=== PATIENT | female | born 1970 | race Caucasian/White ===

== ENCOUNTER 2019-02-08 23:24 | Emergency (ER) | payer BC ==
[~2019-02-08] VITALS: Ht 172.7 cm; Wt 63.5 kg
[~2019-02-08 23:24] MED LIST: ALPR0.25 PO; DEXILANT PO; OMEP20CA11 PO; PROC10TA13 PO; SUCR1TAB PO
[2019-02-08 23:29] VITALS: BP_SYST 94
--- NOTE | 2019-02-08 23:30 | NUR ---
Patient triaged and placed in waiting room. VSS and patient appears in no acute distress at this time. Accompanied by FAM MEMBER, awaiting available bed, and MD notified of need for MSE.
--- NOTE | 2019-02-09 00:19 | NUR ---
Patient to ER bed 5 for evaluation. Side rails up.
--- NOTE | 2019-02-09 00:20 | NUR ---
Pt BIB C/O Lt Knee pain S/P mechanical fall. Pt states pain intensifies when bearing weight or changing positions. Pt denies KO, N/V or any other symptoms at this time. Will continue to monitor.
--- NOTE | 2019-02-09 00:30 | NUR ---
ER Dr. Gross at bedside examining patient.
[2019-02-09] MEDS ORDERED: MORPHINE SULFATE 10 MG/ML VIAL IM ONE (01:15)
[2019-02-09] MEDS ORDERED: DIPHENHYDRAMINE INJ 50 MG/ML VIAL IM ONE (01:15)
--- NOTE | 2019-02-09 01:20 | NUR ---
Pt is resting in bed, no acute distress noted at this time.
[2019-02-09 02:10] VITALS: BP_SYST 94
--- NOTE | 2019-02-09 02:10 | NUR ---
Patient given written and verbal discharge instructions and verbalizes understanding. ER MD discussed with patient the results and treatment provided. Patient in stable condition. ID arm band removed. Rx of NOrco given. Patient educated on pain management and to follow up with PMD. Pain Scale 0. Opportunity for questions provided and answered. Medication side effect fact sheet provided.
== END 2019-02-09 02:10 | disposition home or self-care (01) ==
LOC: SED 23:24
DX: S82.002A Unspecified fracture of left patella, initial encounter for closed fracture (principal); S80.02XA Contusion of left knee, initial encounter; S60.417A Abrasion of left little finger, initial encounter; F41.9 Anxiety disorder, unspecified; W01.0XXA Fall on same level from slipping, tripping and stumbling without subsequent striking against object, initial encounter; Y93.89 Activity, other specified; Y92.89 Other specified places as the place of occurrence of the external cause; Y99.8 Other external cause status
CPT/HCPCS: 29505; 73564; 96372; 99283; J1200; J2270

== ENCOUNTER 2019-02-13 09:52 | Day surgery (SDC) | payer BC ==
[2019-02-10 11:39] LABS: BASOPHILS # (AUTO) 0.1 K/uL (0.0-0.2); BASOPHILS % (AUTO) 0.4 % (0.0-2.0); EOSINOPHILS # (AUTO) 0.1 K/uL (0.0-0.4); EOSINOPHILS % (AUTO) 0.6 % (0.0-4.0); HEMATOCRIT 36.9 % (36-48); HEMOGLOBIN 12.3 g/dL (12.0-16.0); LYMPHOCYTES # (AUTO) 2.8 K/uL (1.0-5.5); LYMPHOCYTES % (AUTO) 20.1 % (20.5-51.5); MEAN CORPUSCULAR HEMOGLOBIN 31 pg (27-31); MEAN CORPUSCULAR HGB CONC 33 % (32-36); MEAN CORPUSCULAR VOLUME 92 fL (79.0-98.0); MONOCYTES # (AUTO) 0.5 K/uL (0.0-1.0); MONOCYTES % (AUTO) 3.8 % (1.7-9.3); NEUTROPHILS # (AUTO) 10.4 K/uL (1.8-7.7); NEUTROPHILS % (AUTO) 75.1 % (40.0-70.0); PLATELET COUNT (AUTO) 347 K/uL (130-430); RED BLOOD CELL COUNT(AUTO) 4.03 MIL/uL (4.2-6.2); RED CELL DISTRIBUTION WIDTH 16.1 % (9.0-15.0); WHITE BLOOD COUNT (AUTO) 13.8 K/uL (4.8-10.8)
[2019-02-10 11:52] LABS: CALCIUM 9.1 mg/dL (8.4-11.0); CREATININE 0.69 mg/dL (0.55-1.30); POTASSIUM 4.1 mmol/L (3.5-5.1)
[2019-02-10 11:55] LABS: INR 1.1 (0.8-1.2); PROTHROMBIN TIME 10.6 SECS (9.5-12.5)
[2019-02-10 12:08] LABS: BILIRUBIN,URINE 1+ (NEGATIVE); BLOOD, URINE NEGATIVE (NEGATIVE); CLARITY/URINE SL HAZY (CLEAR); COLOR,URINE YELLOW (YELLOW); GLUCOSE,URINE NEGATIVE (NEGATIVE); KETONES,URINE TRACE (NEGATIVE); LEUKOCYTE ESTERASE ,URINE TRACE (NEGATIVE); NITRITE, URINE NEGATIVE (NEGATIVE); PH,URINE 5.5 (5.0-8.0); PROTEIN URINE NEGATIVE (NEGATIVE)
[2019-02-10 12:13] LABS: BACTERIA,URINE FEW /HPF (None Seen); RBC,URINE 0-3 /HPF (0-3)
[~2019-02-13] VITALS: Ht 172.7 cm; Wt 63.5 kg
[~2019-02-13 09:52] MED LIST changes: +OMEP20CA10 PO; -OMEP20CA11 PO
[2019-02-13] MEDS ORDERED: LevALBUTEROL HCL 1.25 MG/0.5 ML *CONC.* VIAL.NEB (XOPENEX CONC.) INH ONE ×2 (11:00→11:13)
[2019-02-13] MEDS ORDERED: POLYMYXIN 500,000/BACIT.10,000 UNITS in NS IRR 1 L IR ONE (11:41)
[2019-02-13] MEDS ORDERED: LR 1,000 ML IV SCH (12:12)
[2019-02-13] MEDS ORDERED: HYDROmorphone 2 MG/ML VIAL IVP PRN ×2 (12:15)
[2019-02-13] MEDS ORDERED: HYDROmorphone 1 MG INJ. 1 MG/ML AMPUL IVP PRN (12:15)
[2019-02-13] MEDS ORDERED: MEPERIDINE HCL/PF 25 MG/ML DISP.SYRIN IVP PRN (12:15)
[2019-02-13] MEDS ORDERED: fentaNYL CITRATE 250 MCG/5 ML AMP ONE (13:05)
[2019-02-13] MEDS ORDERED: LR 1,000 ML IV.SOLN IV ONE (13:05)
[2019-02-13] MEDS ORDERED: KETOROLAC TROMETHAMINE 30 MG VIAL ONE (13:05)
[2019-02-13] MEDS ORDERED: PROPOFOL 200MG/ 20ML VIAL (DIPRIVAN) IV ONE (13:05)
[2019-02-13] MEDS ORDERED: DEXAMETHASONE SOD PHOSPHATE 4 MG/ML VIAL ONE (13:05)
[2019-02-13] MEDS ORDERED: MIDAZOLAM HCL 5 MG/ML VIAL (VERSED) IV ONE (13:05)
[2019-02-13] MEDS ORDERED: ONDANSETRON HCL 4 MG/2 ML VIAL ONE (13:05)
[2019-02-13] MEDS ORDERED: ROCURONIUM BROMIDE 10 MG/ML (ZEMURON) ONE (13:05)
[2019-02-13] MEDS ORDERED: SEVOFLURANE 15 MIN GAS INH ONE (13:05)
[2019-02-13] MEDS ORDERED: HYDROmorphone 2 MG/ML VIAL ONE (13:32)
[2019-02-13] MEDS ORDERED: MEPERIDINE HCL/PF 25 MG/ML DISP.SYRIN ONE (13:49)
[2019-02-13 15:26] VITALS: BP_SYST 99
== END 2019-02-13 15:05 | disposition home or self-care (01) ==
LOC: SMU 09:52 → SDS 09:52
PROVIDERS: ATTEND Orthopaedic Surgery
DX: S82.042A Displaced comminuted fracture of left patella, initial encounter for closed fracture (principal); F17.210 Nicotine dependence, cigarettes, uncomplicated; F41.9 Anxiety disorder, unspecified; K21.9 Gastro-esophageal reflux disease without esophagitis; Z79.01 Long term (current) use of anticoagulants; W19.XXXA Unspecified fall, initial encounter; Y93.89 Activity, other specified; Y92.89 Other specified places as the place of occurrence of the external cause; Y99.8 Other external cause status
CPT/HCPCS: 27524; 36415; 73560; 80048; 81000; 84703; 85025; 85610; 85730; 94640; C1713; J1100; J1170; J1885; J2175; J2250; J2405; J2704; J3010; J7120; J7612

== ENCOUNTER 2021-03-23 16:26 | Emergency (ER) | payer BC ==
[~2021-03-23] VITALS: Ht 172.7 cm; Wt 68.0 kg
[~2021-03-23 16:26] MED LIST changes: -OMEP20CA10 PO; +OMEP20CA15 PO
[2021-03-23 16:44] VITALS: BP_SYST 105
[2021-03-23] MEDS ORDERED: KETOROLAC TROMETHAMINE 60 MG/2 ML VIAL IM ONE (16:45)
[2021-03-23] MEDS ORDERED: HYDR-3917 PO ×2 (17:57→18:28)
[2021-03-23] MEDS ORDERED: IBUP-1969 PO ×2 (17:57→18:28)
[2021-03-23] MEDS ORDERED: MORPHINE 4 MG INJ. 4 MG/ML VIAL IM ONE (18:00)
[2021-03-23 18:34] VITALS: BP_SYST 113
== END 2021-03-23 18:34 | disposition home or self-care (01) ==
LOC: SED 16:26
DX: S93.401A Sprain of unspecified ligament of right ankle, initial encounter (principal); K21.9 Gastro-esophageal reflux disease without esophagitis; Z79.899 Other long term (current) drug therapy; V49.49XA Driver injured in collision with other motor vehicles in traffic accident, initial encounter; Y93.89 Activity, other specified; Y92.89 Other specified places as the place of occurrence of the external cause; Y99.8 Other external cause status
CPT/HCPCS: 73610; 96372; 99284; J1885; J2270

== ENCOUNTER 2021-07-18 09:53 | Day surgery (SDC) | payer BC, SELFPAY ==
[2021-07-16 13:55] LABS: BASOPHILS # (AUTO) 0.1 K/uL (0.0-0.2); BASOPHILS % (AUTO) 0.6 % (0.0-2.0); EOSINOPHILS # (AUTO) 0.2 K/uL (0.0-0.4); EOSINOPHILS % (AUTO) 1.5 % (0.0-4.0); HEMATOCRIT 37.3 % (36-48); HEMOGLOBIN 12.3 g/dL (12.0-16.0); LYMPHOCYTES # (AUTO) 4.1 K/uL (1.0-5.5); LYMPHOCYTES % (AUTO) 37.1 % (20.5-51.5); MEAN CORPUSCULAR HEMOGLOBIN 27 pg (27-31); MEAN CORPUSCULAR HGB CONC 33 % (32-36); MEAN CORPUSCULAR VOLUME 80 fL (79.0-98.0); MONOCYTES # (AUTO) 0.3 K/uL (0.0-1.0); MONOCYTES % (AUTO) 3.1 % (1.7-9.3); NEUTROPHILS # (AUTO) 6.3 K/uL (1.8-7.7); NEUTROPHILS % (AUTO) 57.7 % (40.0-70.0); PLATELET COUNT (AUTO) 524 K/uL (130-430); RED BLOOD CELL COUNT(AUTO) 4.66 MIL/uL (4.2-6.2)
[2021-07-16 14:23] LABS: BILIRUBIN,URINE NEGATIVE (NEGATIVE); BLOOD, URINE NEGATIVE (NEGATIVE); CLARITY/URINE CLEAR (CLEAR); COLOR,URINE YELLOW (YELLOW); GLUCOSE,URINE NEGATIVE (NEGATIVE); KETONES,URINE NEGATIVE (NEGATIVE); LEUKOCYTE ESTERASE ,URINE NEGATIVE (NEGATIVE); NITRITE, URINE NEGATIVE (NEGATIVE); PROTEIN URINE NEGATIVE (NEGATIVE); UROBILINOGEN,URINE 0.2 (0.2-1.0)
[2021-07-16 14:30] LABS: CALCIUM 9.5 mg/dL (8.4-11.0); CREATININE 0.66 mg/dL (0.55-1.30); POTASSIUM 4.1 mmol/L (3.5-5.1)
[2021-07-16 14:48] LABS: INR 0.9 (0.8-1.2); PROTHROMBIN TIME 9.9 SECS (9.5-12.5)
[~2021-07-18] VITALS: Ht 172.7 cm; Wt 68.0 kg
[~2021-07-18 09:53] MED LIST changes: +HYDR-3917 PO; +IBUP-1969 PO
[2021-07-18 10:45] LABS: HCG,QUAL RESULT NEGATIVE (NEGATIVE)
[2021-07-18] MEDS ORDERED: KETOROLAC TROMETHAMINE 30 MG VIAL ONE ×2 (12:05→13:58)
[2021-07-18] MEDS ORDERED: SEVOFLURANE 15 MIN GAS INH ONE (12:05)
[2021-07-18] MEDS ORDERED: PROPOFOL 200MG/ 20ML VIAL (DIPRIVAN) IV ONE (12:05)
[2021-07-18] MEDS ORDERED: fentaNYL CITRATE 250 MCG/5 ML AMP ONE (12:05)
[2021-07-18] MEDS ORDERED: NS IRRIG SOLN 1000 ML IR ONE (12:05)
[2021-07-18] MEDS ORDERED: MIDAZOLAM HCL 5 MG/5 ML VIAL ONE (12:05)
[2021-07-18] MEDS ORDERED: BUPIVACAINE /EPINEPHRINE/PF 0.25% 30 ML VIAL INJ ONE (12:05)
[2021-07-18] MEDS ORDERED: LR 1,000 ML IV.SOLN IV ONE (12:05)
[2021-07-18] MEDS ORDERED: ONDANSETRON HCL 4 MG/2 ML VIAL ONE (12:05)
[2021-07-18] MEDS ORDERED: ONDANSETRON HCL 4 MG/2 ML VIAL IVP PRN (12:30)
[2021-07-18] MEDS ORDERED: KETOROLAC TROMETHAMINE 30 MG VIAL IVP PRN (12:30)
[2021-07-18] MEDS ORDERED: IBUPROFEN 600 MG TABLET PO ONE (12:30)
[2021-07-18] MEDS ORDERED: HYDROmorphone 1 MG/ML INJ. CARTRIDGE ONE (13:25)
[2021-07-18] MEDS: HYDROmorphone 1 MG/ML INJ. CARTRIDGE IVP PRN ×2 (13:25→13:40)
[2021-07-18] MEDS ORDERED: MEPERIDINE HCL/PF 25 MG/ML DISP.SYRIN IVP PRN (14:15)
[2021-07-18] MEDS ORDERED: MEPERIDINE HCL/PF 25 MG/ML DISP.SYRIN ONE (14:18)
[2021-07-18 15:59] VITALS: BP_SYST 112
== END 2021-07-18 15:40 | disposition home or self-care (01) ==
LOC: SMU 09:53 → SDS 09:53
PROVIDERS: ATTEND Orthopaedic Surgery
DX: Z47.2 Encounter for removal of internal fixation device (principal); J44.9 Chronic obstructive pulmonary disease, unspecified; K21.9 Gastro-esophageal reflux disease without esophagitis; F17.210 Nicotine dependence, cigarettes, uncomplicated; Z79.01 Long term (current) use of anticoagulants; Z79.899 Other long term (current) drug therapy; Z20.822 Contact with and (suspected) exposure to COVID-19
CPT/HCPCS: 20680; 36415 ×2; 71046; 80048; 81003; 84703 ×2; 85025; 85610; 85730; 87426; 88300; 93005; J1170; J1885; J2175; J2250; J2405; J2704; J3010; J3490; J7120

== ENCOUNTER 2023-11-18 21:03 | Emergency (ER) | payer BC ==
[~2023-11-18] VITALS: Ht 167.6 cm; Wt 65.8 kg
[~2023-11-18 21:03] MED LIST changes: -PROC10TA13 PO; +PROC10TA69 PO
[2023-11-18 21:22] VITALS: BP_SYST 122; PULSE 81; RESP 18; TEMP 98.1; O2SAT 98
[2023-11-18] MEDS: KETOROLAC TROMETHAMINE 60 MG/2 ML VIAL IM ONE (22:43)
[2023-11-19] MEDS: MORPHINE 4 MG INJ. 4 MG/ML VIAL IVP ONE (01:34)
[2023-11-19] MEDS ORDERED: NAPR-1172 PO (01:48)
[2023-11-19 02:02] VITALS: BP_SYST 127; PULSE 71; RESP 16; TEMP 98; O2SAT 95
== END 2023-11-19 02:00 | disposition home or self-care (01) ==
LOC: SED 21:03
DX: G89.29 Other chronic pain (principal); M54.50 Low back pain, unspecified; R10.2 Pelvic and perineal pain; K21.9 Gastro-esophageal reflux disease without esophagitis; Z79.899 Other long term (current) drug therapy; Z79.2 Long term (current) use of antibiotics
CPT/HCPCS: 96372; 96374; 99285; J1885; J2270